=== PATIENT | female | born 1970 | race Caucasian/White ===

== ENCOUNTER 2020-04-01 19:05 | Emergency (ER) | payer OTHER ==
[~2020-04-01] VITALS: Ht 180.3 cm; Wt 90.7 kg
[2020-04-01] MEDS ORDERED: PERPHENAZINE4 MG PO (19:27)
[2020-04-01] MEDS ORDERED: CELEBREX200 MG PO (19:28)
[2020-04-01] MEDS ORDERED: REMERON15 MG PO (19:28)
[2020-04-01] MEDS ORDERED: CYMBALTA60 MG PO (19:29)
[2020-04-01] MEDS ORDERED: CATAPRES0.1 MG PO (19:30)
[2020-04-01] MEDS ORDERED: TOPAMAX100 MG PO (19:30)
--- NOTE | 2020-04-01 21:35 | EKG ---
[facility] [address] [place], [place] [address] Signed Normal sinus rhythm Normal ECG No previous ECGs available Confirmed by KYLIE GOMEZ MD [id number] on 04/01/2020 9:35:32 PM Electronically Signed By: KYLIE GOMEZ MD 04/01/20 2135 PATIENT NAME: BALWINDER HELM Electrocardiogram DATE OF : 74 PHYSICIAN: KYLIE GOMEZ MD REPORT #: [id number] REPORT IS CONFIDENTIAL AND NOT TO BE RELEASED WITHOUT AUTHORIZATION
[2020-04-01] MEDS ORDERED: OMEPRAZOLE20 MG PO (22:05)
== END 2020-04-01 22:14 | disposition home or self-care (01) ==
LOC: ED 19:05
DX: R47.81 Slurred speech (principal); R06.02 Shortness of breath; R07.9 Chest pain, unspecified; F17.200 Nicotine dependence, unspecified, uncomplicated; Z79.899 Other long term (current) drug therapy
CPT/HCPCS: 70450; 71045; 80053; 83735; 84484; 85025; 85379; 93005; 93010; 99285-25